=== PATIENT | male | born 2000 | race Two or more races ===

== ENCOUNTER 2024-02-14 17:10 | Emergency (ER) | payer MEDICAID, OTHER ==
[~2024-02-14] VITALS: Ht 175.3 cm; Wt 87.0 kg
[2024-02-14] MEDS: SODIUM CHLORIDE 0.9% 1,000 ML IV ONE (19:23)
[2024-02-14 19:24] VITALS: PULSE 114; RESP 16; O2SAT 98
[2024-02-14 19:26] LABS: Basophils # (auto) 0.1 10 ^3/uL (0-0.2); Basophils % (auto) 0.6 % (0.0-2.0); Eosinophils # (auto) 0 10 ^3/uL (0-0.8); Hematocrit 49.9 % (41.0-53.0); Hemoglobin 16.8 g/dL (13.5-17.5); Lymphocytes # (auto) 1.1 10 ^3/uL (0.4-5.4); Lymphocytes % (auto) 8.1 % (10.0-50.0); Mean Corpuscular Hgb Conc. 33.8 g/dL (32.0-36.0); Mean Corpuscular Volume 85.9 fL (80.0-100.0); Monocytes # (auto) 0.6 10 ^3/uL (0-1.3); Monocytes % (auto) 4.3 % (0.0-12.0); Neutrophils # (auto) 11.3 10 ^3/uL (1.6-8.6); Platelet Count (auto) 278 10^3/uL (140-450); Red Blood Cells 5.81 10^6/uL (4.5-5.90); Red Cell Distribution Width 14.1 % (11.8-14.3)
[2024-02-14 19:39] LABS: Alanine Aminotransferase 32 U/L (7-40); Alkaline Phosphatase 109 U/L (46-116); Anion Gap 9 (5-15); Aspartate Aminotransferase 21 U/L (13-40); Blood Urea Nitrogen 9 mg/dL (9-23); Calcium 10.6 mg/dL (8.7-10.4); Carbon Dioxide 21 mmol/L (20-30); Chloride 107 mmol/L (98-107); Glucose 106 mg/dL (74-106); Potassium 3.4 mmol/L (3.5-5.1); Sodium 137 mmol/L (136-145)
[2024-02-14 19:40] LABS: Albumin 5.1 g/dL (3.2-4.8); Bilirubin, Total 0.6 mg/dL (0.2-1.0); Total Protein 8.4 g/dL (5.7-8.2)
[2024-02-14 20:20] LABS: Urine Bacteria None Seen /hpf (None Seen)
[2024-02-14 20:28] LABS: Urine Blood Negative /uL (Negative); Urine Clarity Clear (Clear); Urine Color Light-Yellow (Yellow); Urine Protein, UAD Negative (Negative); Urine Specific Gravity 1.012 (1.001-1.035); Urine Urobilinogen Normal (Negative); Urine WBC 1 /hpf (0 - 3)
[2024-02-14 20:41] LABS: Amphetamine Screen, Urine Neg (NEGATIVE); Barbiturate Scree,Urine Neg (NEGATIVE); Benzodiazephine Screen, Urine Neg (NEGATIVE); Cannabinoid Screen, Urine Neg (NEGATIVE); Cocaine Screen, Urine Neg (NEGATIVE); Opiate Scree,Urine Neg (NEGATIVE); Phencyclidine Screen, Urine Neg (NEGATIVE)
[2024-02-14] MEDS: cefTRIAXone 1GM/50ML D5W 50 ML IV ONE (21:11)
[2024-02-14] MEDS ORDERED: AMOX500C2 PO (22:11)
[2024-02-14 22:15] VITALS: BP 137/87; PULSE 86; RESP 19; TEMP 98.6; O2SAT 98
== END 2024-02-14 22:17 | disposition home or self-care (01) ==
LOC: ER 17:10
DX: J03.90 Acute tonsillitis, unspecified (principal)
CPT/HCPCS: 36415; 70450; 80053; 80307; 81001; 83605; 84484; 85025; 93005; 96361; 96365; 99285; J0696; J7030